=== PATIENT | female | born 1960 ===

== ENCOUNTER 2017-11-01 09:41 | Day surgery (SDC) | payer OTHER ==
[2017-11-01 10:16] VITALS: BMI 32.2
[2017-11-01] MEDS ORDERED: Propofol 10 mg/ml Inj (20 ML) ONE (12:39)
[2017-11-01] MEDS ORDERED: Lactated Ringer's 1,000 ML IV ONE (12:42)
[2017-11-01 13:37] VITALS: TEMP 98.6
[2017-11-01 13:51] VITALS: O2SAT 98
[2017-11-01 13:57] VITALS: BP 101/60; PULSE 65; RESP 12
== END 2017-11-01 13:54 | disposition home or self-care (01) ==
LOC: C.ENDO 09:41
PROVIDERS: ATTEND Internal Medicine Gastroenterology
DX: K29.70 Gastritis, unspecified, without bleeding (principal); B96.81 Helicobacter pylori [H. pylori] as the cause of diseases classified elsewhere; K64.8 Other hemorrhoids
CPT/HCPCS: 43239; 45378; 88305; 88313; 88342; J2704; J7120